=== PATIENT | male | born 2005 | race Caucasian/White ===

== ENCOUNTER 2023-02-08 21:02 | Day surgery (SDC) | payer OTHER ==
[2023-02-08] MEDS ORDERED: Glucagon 1 MG/ML KIT ONE (22:37)
[2023-02-08 23:24] LABS: #Eosinphils 1.2 10x3/uL (0.0-0.5); #Monocytes 0.5 10x3/uL (0.0-1.1); #Neutrophils 1.7 10x3/uL (1.5-8.4); %Basophils 0.6 % (0.0-2.0); %Eosinophils 16.5 % (0.0-6.0); %Lymphocytes 51.1 % (18.0-47.0); %Monocytes 7.6 % (0.0-10.0); %Neutrophils 24.1 % (40.0-75.0); Hematocrit 37.9 % (38.8-50.0); Hemoglobin 12.6 g/dL (13.5-17.5); Mean Corpuscular HGB CONC 33.2 g/dL (32.0-36.0); Mean Corpuscular Hemoglobin 30.2 pg (27.0-33.0); Mean Corpuscular Volume 90.9 fl (81.2-95.1); Mean Platelet Volume 9.3 fl (7.4-10.4); Platelet Count 236 10x3/uL (150-450); RBC Distribution Width 12.5 % (11.5-14.5); Red Blood Cell (RBC) Count 4.17 10x6/uL (4.32-5.72)
[2023-02-08] MEDS ORDERED: Midazolam HCl 2 mg/2 ml Vial ONE (23:38)
[2023-02-08] MEDS ORDERED: fentaNYL 50 mcg/mL 1 mL Vial ONE (23:38)
[2023-02-08] MEDS ORDERED: PROPOFOL 20 ML ONE (23:38)
[2023-02-08] MEDS ORDERED: Ondansetron PF 4 MG/2 ML Vial ONE (23:39)
[2023-02-08] MEDS ORDERED: Lidocaine 1% PF 5 ML VIAL ONE (23:39)
[2023-02-08] MEDS ORDERED: Dexamethasone 4 mg/ml Vial ONE (23:39)
[2023-02-08] MEDS ORDERED: Succinylcholine 200 MG/10 ml SYRINGE FS ONE (23:47)
[2023-02-08 23:57] LABS: ALT (SGPT) 12 U/L (8-55); AST (SGOT) 19 U/L (5-34); Albumin 4.5 g/dL (3.5-5.0); Alkaline Phosphatase 66 U/L (50-130); Anion Gap 13 mmol/L (10-20); BUN (Urea Nitrogen) 11 mg/dL (8.9-20.6); Bilirubin, Total 0.4 mg/dL (0.2-1.2); Calc. Creatinine Clearance 0 mL/min (70-130); Calcium 9.1 mg/dL (7.8-10.44); Carbon Dioxide 24 mmol/L (22-29); Chloride 106 mmol/L (98-107); Estimated GFR 121; Globulin 2.8 g/dL (2.4-3.5); Glucose 133 mg/dL (70-105); Potassium 3.5 mmol/L (3.5-5.1); Protein, Total 7.3 g/dL (6.0-8.3); Sodium 139 mmol/L (136-145)
[2023-02-09] MEDS ORDERED: ePHEDrine Sulfate 50 MG/10 ML VIAL ONE (00:26)
== END 2023-02-09 01:35 | disposition home or self-care (01) ==
LOC: CSHERS 21:02 → CSHSDC/OP 23:50
PROVIDERS: ATTEND Psychiatry & Neurology Psychiatry
PROC: 0DB38ZX Excision of Lower Esophagus, Via Natural or Artificial Opening Endoscopic, Diagnostic (ICD-10-PCS; principal; 2023-02-09)
PROC: 0D758ZZ Dilation of Esophagus, Via Natural or Artificial Opening Endoscopic (ICD-10-PCS; principal; 2023-02-09)
PROC: 0DC58ZZ Extirpation of Matter from Esophagus, Via Natural or Artificial Opening Endoscopic (ICD-10-PCS; principal; 2023-02-09)
PROC: 0DB18ZX Excision of Upper Esophagus, Via Natural or Artificial Opening Endoscopic, Diagnostic (ICD-10-PCS; principal; 2023-02-09)
DX: T18.128A Food in esophagus causing other injury, initial encounter (principal); K20.0 Eosinophilic esophagitis; K22.2 Esophageal obstruction; F17.200 Nicotine dependence, unspecified, uncomplicated; W44.8XXA Other foreign body entering into or through a natural orifice, initial encounter
CPT/HCPCS: 71045; 80053; 85025; 88305; 96374; J1100; J1611; J2250; J2405; J2704; J3010